=== PATIENT | female | born 1945 | race Hispanic/Latino ===

== ENCOUNTER 2021-06-19 08:04 | Observation (INO) | payer OTHER ==
[~2021-06-19] VITALS: Ht 157.5 cm; Wt 54.4 kg
[~2021-06-19 08:04] MED LIST: ALENDRONATE SOD70 MG; ATORVASTATIN CA20 MG PO; LISINOPRIL10 MG PO; ROPIVACAINE 246.25 MG, EPINEPHRINE HCL 1:1000 1ML 0.5 MG, CLONIDINE HCL 0.08 MG, KETORO... INJ ONE; VITAMIN D3100 GM
[2021-06-19] MEDS ORDERED: CELECOXIB 200 MG CAP ONE (08:30)
[2021-06-19] MEDS ORDERED: DEXAMETHASONE SOD PHOS 10 MG/1 ML VIAL ONE (08:31)
[2021-06-19] MEDS ORDERED: SODIUM CHLORIDE 0.9% 50ML 100 ML ONE (08:31)
[2021-06-19] MEDS ORDERED: GABAPENTIN 300 MG CAP ONE (08:31)
[2021-06-19] MEDS ORDERED: SODIUM CHLORIDE 0.9% 500ML 500 ML ONE (08:34)
[2021-06-19] MEDS ORDERED: Vancomycin IV 1,000 MG ONE (08:35)
[2021-06-19] MEDS ORDERED: TRANEXAMIC ACID 1,000 MG/10 ML ML ONE (08:35)
[2021-06-19] MEDS ORDERED: DIPHENHYDRAMINE HCL INJ 50 MG/ML VIAL IV PRN (10:30)
[2021-06-19] MEDS ORDERED: SODIUM CHLORIDE 0.9% 1000ML 1,000 ML IV SCH (10:30)
[2021-06-19] MEDS ORDERED: ONDANSETRON HCL INJ 2MG/ML 2ML 2 MG/ML VIAL IV PRN (10:30)
[2021-06-19] MEDS ORDERED: HYDROCODONE/APAP 5MG-325MG TAB PO PRN (10:30)
[2021-06-19] MEDS ORDERED: ACETAMINOPHEN 650 MG SUPP PR PRN (10:30)
[2021-06-19] MEDS ORDERED: DOCUSATE SODIUM 100 MG CAP PO PRN (10:30)
[2021-06-19] MEDS ORDERED: KETOROLAC TROMETHAMINE 30 MG/ML VIAL IV PRN (10:30)
[2021-06-19] MEDS ORDERED: HYDROCODONE/APAP 7.5MG-325MG 1 EA TAB PO PRN (10:30)
[2021-06-19 11:35] VITALS: BP 159/64
[2021-06-19 11:55] VITALS: BP 159/64
[2021-06-19 12:00] VITALS: BP 159/64
[2021-06-19] MEDS ORDERED: POVIDONE IODINE 0.05% 0.05 % ML PO ONE (12:56)
[2021-06-19] MEDS ORDERED: SEVOFLURANE INHAL SOLN 250 ML PEN BTL ONE (12:56)
[2021-06-19] MEDS ORDERED: ONDANSETRON HCL INJ 2MG/ML 2ML 2 MG/ML VIAL ONE (12:56)
[2021-06-19] MEDS ORDERED: PROPOFOL IV EMULSION 10 MG/ML 20 ML VIAL ONE (12:56)
[2021-06-19] MEDS ORDERED: LIDOCAINE HCL 2% LOCAL INJ 5 ML SDV VIAL INJ ONE (12:56)
[2021-06-19] MEDS ORDERED: ROPIVACAINE 0.5% 5 MG/ML 30 ML SDV ONE (13:02)
[2021-06-19] MEDS ORDERED: LIDOCAINE 2% /EPINEPHRINE 20 ML SDV INJ ONE (13:02)
[2021-06-19] MEDS ORDERED: MIDAZOLAM HCL 2 MG/2 ML VIAL ONE (13:18)
[2021-06-19] MEDS ORDERED: FENTANYL CITRATE/PF 100MCG/2 ML INJ ONE (13:18)
[2021-06-19] MEDS ORDERED: ACETAMINOPHEN 1000 MG/100 ML IV PRN (14:00)
[2021-06-19] MEDS ORDERED: Cefazolin 1 GM in SODIUM CHLORIDE 0.9% 50ML 50 ML IV SCH ×2 (14:00→17:00)
[2021-06-19 16:13] VITALS: BP 119/57
[2021-06-19] MEDS ORDERED: CELECOXIB 100 MG CAP PO SCH (17:00)
[2021-06-19] MEDS ORDERED: ASPIRIN 325 MG TAB PO SCH (17:00)
[2021-06-19] MEDS ORDERED: ZOLPIDEM TARTRATE 5 MG TAB PO PRN (21:00)
== END 2021-06-19 19:38 | disposition home health service (06) ==
LOC: OR 08:04 → PACU V 11:15 → MED/SURG 11:47
PROVIDERS: ADMIT Specialist; ATTEND Specialist
DX: M17.12 Unilateral primary osteoarthritis, left knee (principal); I10 Essential (primary) hypertension; Z88.0 Allergy status to penicillin; Z01.812 Encounter for preprocedural laboratory examination; Z20.822 Contact with and (suspected) exposure to COVID-19
CPT/HCPCS: 27447; 71046; 73560; 86850; 86900; 94799; 97139 ×2; 97162; 97530 ×2; G0378; J0171; J0690; J1100; J1885; J2001 ×2; J2250; J2405; J2704; J2795; J3010; J3370; J7040; U0002; 86920